=== PATIENT | male | born 1945 | race Caucasian/White ===

== ENCOUNTER 2017-03-30 02:10 | Observation (INO) | payer OTHER ==
[2017-03-30] VITALS (12 sets, daily range): BP systolic 118–127; BP diastolic 56–77; PULSE 58–84; RESP 16–20; TEMP 97.4–97.7; O2SAT 95–100
[~2017-03-30] VITALS: Ht 182.9 cm; Wt 105.0 kg
[~2017-03-30 02:10] MED LIST: ASPI325T PO; CARV6.252 PO; CLOP75 PO; LISI-357 PO; MEDR4PAK3 PO; RANI150C PO; SIMV80TA PO
--- NOTE | 2017-03-30 02:24 | PD ---
HPI Chief Complaint: Chest Pain Time Seen by Provider: 02:17 Travel History International Travel<30 days: No Contact w/Intl Traveler<30days: No Traveled to known affect area: No History of Present Illness HPI PT C/O CP, PRESSURE, SUBSTERNAL , NONRAD, 02/21, ORIGINAL ONSET SINCE 2099, STILL PRESENT [facility] AND CARDIO PMHX: 2010 STENTS AND TX, HTN, HI CHOL PFSH Past Medical History Anxiety: Yes Depression: Yes Heart Rhythm Problems: No Cancer: Yes (PROSTATE CA) Cardiac Catheterization: Yes Cardiovascular Problems: Yes (PREVIOUS CARDIAC STENT PLACEMENT 09/28/10) High Cholesterol: Yes Congestive Heart Failure: No Coronary Artery Disease: Yes Diabetes: No Diminished Hearing: No Endocrine: No GERD: Yes Genitourinary: Yes (HX OF URETHERAL STRICTURE) Hypertension: Yes Immune Disorder: No Musculoskeletal: No Neurologic: No Psychiatric: Yes (POST TRAUMATIC STRES D/O) Respiratory: No Radiation Therapy: Yes (FOUR TO FIVE YEARS AGO) PNEUMOCCOCAL Vaccine (Year): 2010 Past Surgical History Abdominal Surgery: Yes (RIGHT NEPHRECTOMY (DONATED TO SISTER)) Coronary Artery Bypass Graft: No Coronary Stent: Yes Genitourinary Surgery: Yes (HERNIA REPAIR) Other Surgery: Yes (INGUINAL HERNIA REPAIR, NEPHRECTOMY-DONATED) Social History Alcohol Use: No (STS QUIT) Tobacco Use: No (QUIT 2010; SMOKED FROM [id number]) Substance Use: No Allergies-Medications (Allergen,Severity, Reaction): Coded Allergies: Sulfa (Sulfonamide Antibiotics) (Unverified Allergy, Severe, BREATHING DIFFICULTY, 03/29/17) Reported Meds & Prescriptions Reported Meds & Active Scripts Active Reported Lisinopril 5 Mg Tab 5 Mg PO DAILY Aspirin 325 Mg Tab 325 Mg PO DAILY Simvastatin 80 Mg Tab 80 Mg PO DAILY Carvedilol 12.5 Mg Tab 12.5 Mg PO BID Review of Systems Except as stated in HPI: all other systems reviewed are Neg Cardiovascular: Positive: Chest Pain or Discomfort Physical Exam Narrative GENERAL: SKIN: Warm and dry. HEAD: Atraumatic. Normocephalic. EYES: Pupils equal and round. No scleral icterus. No injection or drainage. ENT: No nasal bleeding or discharge. Mucous membranes pink and moist. NECK: Trachea midline. No JVD. CARDIOVASCULAR: Regular rate and rhythm. RESPIRATORY: No accessory muscle use. Clear to auscultation. Breath sounds equal bilaterally. GASTROINTESTINAL: Abdomen soft, non-tender, nondistended. MUSCULOSKELETAL: Extremities without clubbing, cyanosis, or edema. No obvious deformities. NEUROLOGICAL: Awake and alert. No obvious cranial nerve deficits. Motor grossly within normal limits. Five out of 5 muscle strength in the arms and legs. Normal speech. PSYCHIATRIC: Appropriate mood and affect; insight and judgment normal. Data Data Last Documented VS Vital Signs Date Time Temp Pulse Resp B/P Pulse Ox O2 Delivery O2 Flow Rate FiO2 03/30/17 03:08 66 18 124/77 100 Nasal Cannula 2 03/30/17 02:16 97.7 Orders Electrocardiogram (03/30/17 02:18) B-Type Natriuretic Peptide (03/30/17 02:18) Ckmb (Isoenzyme) Profile (03/30/17 02:18) Complete Blood Count With Diff (03/30/17 02:18) Comprehensive Metabolic Panel (03/30/17 02:18) D-Dimer (03/30/17 02:18) Prothrombin Time / Inr (Pt) (03/30/17:18) Act Partial Throm Time (Ptt) (03/30/17 02:18) Troponin I (03/30/17 02:18) Lipase (03/30/17 02:18) Chest, Single Ap (03/30/17 02:18) Ecg Monitoring (03/30/17 02:18) Bilateral Bp Monitoring (03/30/17 02:18) Iv Access Insert/Monitor (03/30/17 02:18) Oximetry (03/30/17 02:18) Oxygen Administration (03/30/17 02:18) Aspirin Chew (Aspirin Chew) (03/30/17 02:30) Morphine Inj (Morphine Inj) (03/30/17 02:30) Nitroglycerin 2% Oint (Nitroglycerin 2% (03/30/17 02:30) Sodium Chloride 0.9% Flush (Ns Flush) (03/30/17 02:30) CKMB (03/30/17 02:30) CKMB% (03/30/17 02:30) Admit Order (Ed Use Only) (03/30/17 03:30) Activity Bed Rest With Brp (03/30/17 03:30) Vital Signs (Adult) Q4H (03/30/17 03:30) Cardiac Rhythm .As Directed (03/30/17 03:30) Notify Dr: Other .PRN (03/30/17 03:30) Notify Dr. Parameters (03/30/17 03:30) Resp Oxygen Nasal Cannula (03/30/17 ) Ckmb (Isoenzyme) Profile (03/30/17 03:30) Ckmb (Isoenzyme) Profile (03/30/17 06:30) Troponin I (03/30/17 03:30) Troponin I (03/30/17 06:30) Electrocardiogram (03/30/17 06:30) ^ Obtain (03/30/17 03:30) Sodium Chlor 0.9% 1000 Ml Inj (Ns 1000 M (03/30/17 03:30) Acetaminophen (Tylenol) (03/30/17 03:30) Morphine Inj (Morphine Inj) (03/30/17 03:30) Ondansetron Inj (Zofran Inj) (03/30/17 03:30) Nitroglycerin Sl (Nitrostat Sl) (03/30/17 03:30) Aspirin (Aspirin) (03/30/17 09:00) Waste Water Operator / Telemetry SAM.Q8H (03/30/17 03:30) Vte Prophylaxis Not Indicated (03/30/17 03:30) CKMB (03/30/17 05:50) CKMB% (03/30/17 05:50) CKMB (03/30/17 08:35) CKMB% (03/30/17 08:35) Labs Laboratory Tests Test 03/30/17 02:30 White Blood Count 6.8 TH/MM3 Red Blood Count 4.41 MIL/MM3 Hemoglobin 13.5 GM/DL Hematocrit 39.4 % Mean Corpuscular Volume 89.2 FL Mean Corpuscular Hemoglobin 30.7 PG Mean Corpuscular Hemoglobin 34.4 % Concent Red Cell Distribution Width 13.4 % Platelet Count 150 TH/MM3 Mean Platelet Volume 8.2 FL Neutrophils (%) (Auto) 51.4 % Lymphocytes (%) (Auto) 33.5 % Monocytes (%) (Auto) 8.7 % Eosinophils (%) (Auto) 5.8 % Basophils (%) (Auto) 0.6 % Neutrophils # (Auto) 3.5 TH/MM3 Lymphocytes # (Auto) 2.3 TH/MM3 Monocytes # (Auto) 0.6 TH/MM3 Eosinophils # (Auto) 0.4 TH/MM3 Basophils # (Auto) 0.0 TH/MM3 CBC Comment DIFF FINAL Differential Comment Prothrombin Time 10.5 SEC Prothromb Time International 1.0 RATIO Ratio Activated Partial 25.7 SEC Thromboplast Time D-Dimer Quantitative (PE/DVT) 0.34 MG/L FEU Sodium Level 141 MEQ/L Potassium Level 4.4 MEQ/L Chloride Level 108 MEQ/L Carbon Dioxide Level 26.5 MEQ/L Anion Gap 7 MEQ/L Blood Urea Nitrogen 25 MG/DL Creatinine 1.49 MG/DL Estimat Glomerular Filtration 47 ML/MIN Rate Random Glucose 114 MG/DL Calcium Level 8.7 MG/DL Total Bilirubin 0.3 MG/DL Aspartate Amino Transf 22 U/L (AST/SGOT) Alanine Aminotransferase 34 U/L (ALT/SGPT) Alkaline Phosphatase 65 U/L Total Creatine Kinase 350 U/L Creatine Kinase MB 6.6 NG/ML Creatine Kinase MB % 1.9 % Troponin I LESS THAN 0.02 NG/ML B-Type Natriuretic Peptide 16 PG/ML Total Protein 7.4 GM/DL Albumin 3.7 GM/DL Lipase 357 U/L [facility] Medical Decision Making Medical Screen Exam Complete: Yes Emergency Medical Condition: Yes Medical Record Reviewed: Yes Interpretation(s) MOTION ARTIFACT BUT NSR 70, NL INTERVALS, NONSPEC STT CHANGES, NO STEMI PATTERN Differential Diagnosis TX V NONSTEMI V PTX V PNA Narrative Course NO E/O PTX OR PNA ON CXR AND NO STEMI ON EKG, WILL ADMIT FOR OBS AND TO R/O NONSTEMI Diagnosis Primary Impression: CP R/O Bradley Matos MD Mar 30, 2017 02:24
[2017-03-30] MEDS ORDERED: SODIUM CHLORIDE 0.9% FLUSH 10 ML FLUSH IVF PRN (02:30)
[2017-03-30] MEDS ORDERED: NITROGLYCERIN 2% OINT 1 GM PACKET TOP ONE (02:30)
[2017-03-30] MEDS ORDERED: ASPIRIN 81 MG CHEW TAB PO ONE (02:30)
[2017-03-30] MEDS ORDERED: MORPHINE SULFATE 4 MG/ML INJ IV PUSH ONE (02:30)
[2017-03-30] MEDS ORDERED: CARV12.52 PO (02:34)
[2017-03-30] MEDS ORDERED: SIMV80TA PO (02:34)
[2017-03-30] MEDS ORDERED: LISI-519 PO (02:34)
[2017-03-30] MEDS ORDERED: ASPI325T PO (02:34)
[2017-03-30 02:47] LABS: AUTOMATED NEUTROPHIL # 3.5 TH/MM3 (1.8-7.7); BASOPHIL % 0.6 % (0.0-2.0); EOSINOPHIL # 0.4 TH/MM3 (0-0.4); EOSINOPHIL % 5.8 % (0.0-4.0); HEMATOCRIT 39.4 % (39.0-51.0); HEMO FLAGS DIFF FINAL; LYMPH % 33.5 % (9.0-44.0); LYMPHOCYTE # 2.3 TH/MM3 (1.0-4.8); MEAN CELL VOLUME 89.2 FL (80.0-100.0); MEAN CORPUSCULAR HEMOGLOBIN 30.7 PG (27.0-34.0); MEAN CORPUSCULAR HGB CONC 34.4 % (32.0-36.0); MONO % 8.7 % (0.0-8.0); NEUT % 51.4 % (16.0-70.0); PLATELET COUNT 150 TH/MM3 (150-450); RED BLOOD COUNT 4.41 MIL/MM3 (4.50-5.90); RED CELL DISTRIBUTION WIDTH 13.4 % (11.6-17.2); WHITE BLOOD COUNT 6.8 TH/MM3 (4.0-11.0)
[2017-03-30 03:07] LABS: APTT (PATIENT) 25.7 SEC (24.3-30.1); PROTHROMBIN TIME - PATIENT 10.5 SEC (9.8-11.6)
--- NOTE | 2017-03-30 03:07 | RADRPT ---
EXAM DATE/TIME: 03/30/2017 02:49 [facility] COMPARISON: CHEST SINGLE AP, January 14, 2011, 19:31. INDICATIONS : Chest pain. MEDICAL HISTORY : None. SURGICAL HISTORY : None. ENCOUNTER: Initial ACUITY: 1 day PAIN SCORE: 7/10 LOCATION: Bilateral chest FINDINGS: A single view of the chest demonstrates the lungs to be symmetrically aerated without evidence of mas s, infiltrate or effusion. The cardiomediastinal contours are unremarkable. There is mild blunting of the left costophrenic angle; a left pleural effusion cannot be excluded. Osseous structures are i ntact. CONCLUSION: 1. Possible small left pleural effusion blunting the costophrenic angle. 2. No infiltrate seen. Ang Lovell MD on March 30, 2017 at 3:05 Board Certified Radiologist. This report was verified electronically.
[2017-03-30 03:09] LABS: BLOOD UREA NITROGEN 25 MG/DL (7-18)
[2017-03-30 03:10] LABS: ALT (GPT) 34 U/L (12-78); ANION GAP 7 MEQ/L (5-15); AST (GOT) 22 U/L (15-37); BICARBONATE 26.5 MEQ/L (21.0-32.0); CHLORIDE 108 MEQ/L (98-107); GLOMERULAR FILTRATION RATE 47 ML/MIN (>89); POTASSIUM 4.4 MEQ/L (3.5-5.1); SODIUM (NA) 141 MEQ/L (136-145)
[2017-03-30 03:13] LABS: ALKALINE PHOSPHATASE 65 U/L (45-117); CREATINE KINASE 350 U/L (39-308); TOTAL BILIRUBIN ADULT 0.3 MG/DL (0.2-1.0)
[2017-03-30 03:25] LABS: CKMB 6.6 NG/ML (0.5-3.6)
[2017-03-30] MEDS ORDERED: NITROGLYCERIN 0.4 MG SL 25 TABS/BTL SL PRN (03:30)
[2017-03-30] MEDS ORDERED: SODIUM CHLOR 0.9% 1000 ML INJ 1,000 ML IV SCH (03:30)
[2017-03-30] MEDS ORDERED: ACETAMINOPHEN 500 MG CPLT PO PRN (03:30)
[2017-03-30] MEDS ORDERED: MORPHINE SULFATE 4 MG/ML INJ IV PRN (03:30)
[2017-03-30] MEDS ORDERED: ONDANSETRON HCL 4 MG/2 ML VIAL IV PRN (03:30)
[2017-03-30 06:35] LABS: CREATINE KINASE 293 U/L (39-308)
[2017-03-30] MEDS ORDERED: ASPIRIN 325 MG TAB PO SCH (09:00)
[2017-03-30 10:20] LABS: CREATINE KINASE 310 U/L (39-308)
[2017-03-30 10:32] LABS: CKMB 5.7 NG/ML (0.5-3.6)
[2017-03-30] MEDS ORDERED: LISINOPRIL 5 MG TAB PO SCH (10:45)
[2017-03-30] MEDS ORDERED: PRAVASTATIN SOD 80 MG TAB PO SCH (10:45)
--- NOTE | 2017-03-30 10:47 | HHI.HP ---
HPI Primary Care Physician [facility] Chief Complaint Chest pain History of Present Illness This is a 71-year-old male with history of CAD that presents to ED complaining of a chest discomfort in the center of his chest that began last night while watching television. Began around 9:00. A sharp and it lasted for about 5 hours. Now the discomfort only reoccurs if he takes a deep breath. He states the discomfort does feel somewhat similar to when he needed a stent in 2010. Denies shortness of breath, nausea, or diaphoresis. [facility] and [facility] okay. Has not had heart catheterization since stent. Currently denies any chest discomfort. Denies recent illness. Review of Systems General: Patient denies fevers, chills recent, and recent travel HEENT: Patient denies headache, sore throat, difficulty swallowing. Cardiovascular: Has the chest discomfort as mentioned above. Denies sensation of heart beating rapidly or irregularly. No syncope. Denies diaphoresis. Respiratory: Denies shortness of breath or inspirational chest discomfort. Denies coughing wheezing or hemoptysis. GI: Patient denies nausea, vomiting, diarrhea, abdominal pain, bloody stools. Musculoskeletal: Patient denies joint pain or edema. Denies calf pain or edema. Neurovascular: Patient denies numbness, tingling, weakness in extremities. Denies headache. Endocrine: Denies polyuria and polydipsia. Hematologic: Denies easy bruising. Skin: Denies rash or itching. Past Family Social History Allergies: Coded Allergies: Sulfa (Sulfonamide Antibiotics) (Unverified Allergy, Severe, BREATHING DIFFICULTY, 03/29/17) Past Medical History CAD with stent in 2010. Hypertension, hyperlipidemia. Denies diabetes. Past Surgical History Cardiac catheterization with stenting in 2010. Hernia repair. Nephrectomy stating he donated to the sister. Reported Medications Reported Meds & Active Scripts Active Reported Lisinopril 5 Mg Tab 5 Mg PO DAILY Aspirin 325 Mg Tab 325 Mg PO DAILY Simvastatin 80 Mg Tab 80 Mg PO DAILY Carvedilol 12.5 Mg Tab 12.5 Mg PO BID Active Ordered Medications Current Medications Medications (Trade) Dose Ordered Sig/Jake Route Start Time Stop Time Status Last Admin Sodium Chloride 2 ml 2 ml UNSCH PRN IVF 03/30/17 02:30 (NS 1000 ml Inj) 1,000 ml @ 100 mls/hr Q10H IV 03/30/17 03:30 03/30/17 03:45 (Tylenol) 500 mg Q4H PRN PO 03/30/17 03:30 (Morphine Inj) 2 mg Q4H PRN IV 03/30/17 03:30 (Zofran Inj) 4 mg Q6H PRN IV 03/30/17 03:30 (Nitrostat Sl) 0.4 mg Q5M PRN SL 03/30/17 03:30 (Aspirin) 325 mg DAILY PO 03/30/17 09:00 03/30/17 10:11 (Aspirin) 325 mg DAILY PO 03/31/17 09:00 UNV (Coreg) 12.5 mg BID PO 03/30/17 21:00 UNV (Prinivil) 5 mg DAILY PO 03/30/17 10:45 UNV Non-Formulary Medication 80 mg DAILY PO 03/30/17 10:45 UNV Family History Denies family history of CAD. Social History Patient quit smoking in 2010 but prior that he smoked one pack of cigarettes daily for 3 years. Has occasional alcohol. Denies illicit drugs. He is retired. Physical Exam Vital Signs Vital Signs Date Time Temp Pulse Resp B/P Pulse Ox O2 Delivery O2 Flow Rate FiO2 03/30/17 09:51 97.4 65 19 124/75 95 03/30/17 09:12 58 03/30/17 07:25 99 03/30/17 07:00 64 16 118/62 98 Room Air 03/30/17 05:25 64 18 123/56 98 Room Air 03/30/17 03:51 95 21 03/30/17 03:08 66 18 124/77 100 Nasal Cannula 2 03/30/17 02:40 71 20 127/77 99 Nasal Cannula 2 03/30/17 02:28 20 100 Nasal Cannula 2 03/30/17 02:24 96 Nasal Cannula 2 03/30/17 02:22 84 20 127/77 98 Room Air 03/30/17 02:21 98 Room Air 03/30/17 02:16 97.7 70 20 124/77 98 Physical Exam GENERAL: This is a well-nourished, well-developed patient, in no apparent distress. Patient speaks in clear complete sentences. Patient is pleasant. HEENT: Head is atraumatic and normocephalic. Neck is supple without lymphadenopathy and trachea is midline. No JVD or carotid bruits. CARDIOVASCULAR: Regular rate and rhythm without murmurs, gallops, or rubs. RESPIRATORY: Clear to auscultation. Breath sounds equal bilaterally. No wheezes , rales, or rhonchi. Chest wall is nontender. No use of accessory muscles. GASTROINTESTINAL: Abdomen is nontender, nondistended. Abdomen soft. No obvious pulsatile mass or bruit. No CVA tenderness. Strong femoral pulses bilaterally. Normal bowel sounds in all quadrants. MUSCULOSKELETAL: Patient is moving upper and lower extremities freely. No calf tenderness or edema, no Homans sign. Strong pulses in upper and lower extremities. NEUROLOGICAL: Patient is alert and oriented. Cranial nerves 2-12 are grossly intact. No focal deficits and speech is clear. SKIN: No rash and turgor is normal. Laboratory Laboratory Tests Test 03/30/17 03/30/17 03/30/17 02:30 05:50 08:35 White Blood Count 6.8 Red Blood Count 4.41 Hemoglobin 13.5 Hematocrit 39.4 Mean Corpuscular Volume 89.2 Mean Corpuscular Hemoglobin 30.7 Mean Corpuscular Hemoglobin 34.4 Concent Red Cell Distribution Width 13.4 Platelet Count 150 Mean Platelet Volume 8.2 Neutrophils (%) (Auto) 51.4 Lymphocytes (%) (Auto) 33.5 Monocytes (%) (Auto) 8.7 Eosinophils (%) (Auto) 5.8 Basophils (%) (Auto) 0.6 Neutrophils # (Auto) 3.5 Lymphocytes # (Auto) 2.3 Monocytes # (Auto) 0.6 Eosinophils # (Auto) 0.4 Basophils # (Auto) 0.0 CBC Comment DIFF FINAL Differential Comment Prothrombin Time 10.5 Prothromb Time International 1.0 Ratio Activated Partial 25.7 Thromboplast Time D-Dimer Quantitative (PE/DVT) 0.34 Sodium Level 141 Potassium Level 4.4 Chloride Level 108 Carbon Dioxide Level 26.5 Anion Gap 7 Blood Urea Nitrogen 25 Creatinine 1.49 Estimat Glomerular Filtration 47 Rate Random Glucose 114 Calcium Level 8.7 Total Bilirubin 0.3 Aspartate Amino Transf 22 (AST/SGOT) Alanine Aminotransferase 34 (ALT/SGPT) Alkaline Phosphatase 65 Total Creatine Kinase 350 293 310 Creatine Kinase MB 6.6 5.0 5.7 Creatine Kinase MB % 1.9 1.8 Troponin I LESS THAN 0.02 LESS THAN 0.02 LESS THAN 0.02 B-Type Natriuretic Peptide 16 Total Protein 7.4 Albumin 3.7 Lipase 357 Result Diagram: 03/30/1722903/30/17 023 Imaging Last 48 hours Impressions Chest X-Ray 03/30/178 Signed Impressions: Service Date/Time: Thursday, March 30, 2017 02:49 - CONCLUSION: 1. Possible small left pleural effusion blunting the costophrenic angle. 2. No infiltrate seen. Ang Lovell MD Course EKGs have sinus rhythm to sinus bradycardia without significant ST segment depressions or elevation. Assessment and Plan Assessment and Plan * Chest pain: Patient had serial cardiac enzymes and EKGs for ruling out purposes. He was seen by Dr. Frank Sinclair of cardiology in the chest pain center and will undergo a Lexiscan. He'll be discharged if stress test is nonischemic. * CAD: We'll reassess with stress testing. He'll resume his medications. * Hypertension: Continue current medication. * Hyperlipidemia: Continue current medication. Patient is stable at this time. He is agreeable to this plan. Brett Marie Mar 30, 2017 10:47
[2017-03-30] MEDS ORDERED: REGADENOSON INJ 0.4 MG/5 ML SYR ONE (12:31)
--- NOTE | 2017-03-30 14:43 | EKG ---
Date Performed: 03/30/2017 Time Performed: 08:58:29 PTAGE: 71 years EKG: Sinus rhythm POSSIBLE SEPTAL MYOCARDIAL INFARCTION ABNORMAL ECG Compared to the PREVIOUS TRACING 03/30/17, no significant change DOCTOR: Oscar Avalos Interpretating Date/Time 03/30/2017 14:42:52
--- NOTE | 2017-03-30 15:15 | RADRPT ---
EXAM DATE/TIME: 03/30/2017 11:54 [facility] COMPARISON: MYOCARDIAL PERF PHARM SPECT, GATED W/EF, November 28, 2010, 11:49. INDICATIONS : Substernal chest pain. Angina. DOSE: 26.2 mCi Tc99m Myoview at stress. 8.7 mCi Tc99m Myoview at rest. 0.4 mg Lexiscan STRESS SYMPTOMS: Shortness of breath. EJECTION FRACTION: 47% MEDICAL HISTORY : Myocardial infarction. Hypertension. Carcinoma, prostate. SURGICAL HISTORY : Coronary artery stent. Nephrectomy, right. Inguinal hernia repair. ENCOUNTER: Initial ACUITY: 1 day PAIN SCALE: 5/10 LOCATION: Substernal chest TECHNIQUE: The patient underwent pharmacologic stress with infusion of prescribed dose. Continuous ECG tracing was monitored during stress. Gated SPECT imaging was performed after stress and conventional SPECT i maging was performed at rest. The examination was performed on a SPECT/CT scanner, both attenuation and non-corrected datasets were reviewed. FINDINGS: DISTRIBUTION: The maximum perfused segment at stress is in the inferior wall. PERFUSION STUDY: A chronic and unchanged fixed defect is seen involving the anteroseptal region. No reversible defects observed. GATED STUDY: There is intact wall motion and thickening without hypokinetic or dyskinetic segments. CONCLUSION: No reversible defects to suggest acute ischemia. RISK CATEGORY: Low Ang Haas Jr., MD on March 30, 2017 at 15:11 Board Certified Radiologist. This report was verified electronically.
--- NOTE | 2017-03-30 15:30 | HHI.DCPOC ---
Discharge Care Plan Diagnosis: (1) Chest pain (2) CAD (coronary artery disease) (3) H/O heart artery stent (4) Hypertension (5) Hyperlipidemia Goals to Promote Your Health * To prevent worsening of your condition and complications * To maintain your health at the optimal level Directions to Meet Your Goals Take your medications as prescribed Follow your dietary instruction Follow activity as directed Keep your appointments as scheduled Take your immunizations and boosters as scheduled If your symptoms worsen call your PCP, if no PCP go to Urgent Care Center or Emergency Room Smoking is Dangerous to Your Health. Avoid second hand smoke Call the 24-hour hour crisis hotline for domestic abuse at Brett Marie Mar 30, 2017 15:30
--- NOTE | 2017-03-30 15:55 | EKG ---
Date Performed: 03/30/2017 Time Performed: 06:04:18 PTAGE: 71 years EKG: SINUS BRADYCARDIA ABNORMAL ECG PREVIOUS TRACING : 01/15/2011 02.40 Since previous tracing, no significant change noted DOCTOR: Frank Sinclair Interpretating Date/Time 03/30/2017 15:52:45
--- NOTE | 2017-03-30 15:56 | EKG ---
Date Performed: 03/30/2017 Time Performed: 02:18:38 PTAGE: 71 years EKG: Sinus rhythm ABNORMAL ECG NO PREVIOUS TRACING DOCTOR: Frank Sinclair Interpretating Date/Time 03/30/2017 15:53:57
[2017-03-30] MEDS ORDERED: CARVEDILOL 12.5 MG TAB PO SCH (21:00)
[2017-03-31] MEDS ORDERED: ASPIRIN 325 MG TAB PO SCH (09:00)
--- NOTE | 2017-03-31 14:54 | TR ---
Date Performed: 03/30/2017 Time Performed: 12:37:19 DOCTOR: Sandro Kenny DRUG LIST: CLINICAL HISTORY: REASON FOR TEST: REASON FOR ENDING: OBSERVATION: CONCLUSION: Lexiscan stress test was performed under standard four minute protocol. Radionuclid e was injected one minute prior to ending the test. No electrocardiographic abormalities were present to suggest ischemia. Nuclear imaging and interpretation are pending. COMMENTS:
== END 2017-03-30 16:39 | disposition home or self-care (01) ==
LOC: NEPC 02:10 → NEDA 03:34 → NEPHCDU 07:43
PROVIDERS: ADMIT Internal Medicine Interventional Cardiology; ATTEND Internal Medicine Interventional Cardiology
DX: R07.89 Other chest pain (principal); I25.10 Atherosclerotic heart disease of native coronary artery without angina pectoris; R00.1 Bradycardia, unspecified; I10 Essential (primary) hypertension; E78.5 Hyperlipidemia, unspecified; K21.9 Gastro-esophageal reflux disease without esophagitis; F41.9 Anxiety disorder, unspecified; F32.9 Major depressive disorder, single episode, unspecified; Z85.46 Personal history of malignant neoplasm of prostate; Z87.891 Personal history of nicotine dependence; Z95.5 Presence of coronary angioplasty implant and graft
CPT/HCPCS: 71010; 78452; 80053; 82550; 82552; 83690; 83880; 84484; 85025; 85379; 85610; 85730; 93005; 93017; 96361; 96374; 99285; A9502; G0378; J2270; J2785; J7030